=== PATIENT | female | born 1995 | race Asian ===

== ENCOUNTER 2017-05-30 19:21 | Emergency (ER) | payer OTHER ==
[~2017-05-30] VITALS: Ht 149.9 cm; Wt 44.9 kg
[2017-05-30 19:30] VITALS: Ht 149.9 cm; Wt 44.9 kg
[2017-05-30] MEDS ORDERED: ACETAMINOPHEN 325 MG TAB PO STA (19:58)
[2017-05-30] MEDS ORDERED: SODIUM CHLORIDE 0.9% 1000ML 1,000 ML IV ONE (20:00)
--- NOTE | 2017-05-30 20:09 | EMERGENCY ROOM VISIT NOTE ---
History First contact with patient: 19:38 Chief Complaint: FEVER Stated Complaint: BRYANT,FEVER,SORE THROAT,JAW AND LOWER BACK ACHE History of Present Illness The patient is a 21 year old female who presents to the Emergency Room with complaints of a fever, sore throat and body aches that started last night. The patient also complains of a headache. She denies any productive cough or shortness of breath. The patient did not take any [id number] medications for her symptoms. She does not like to take medications. She has been trying to hydrate. The patient called the [facility] nurse who told her to come to the emergency department for evaluation. Review of Systems 10 system review performed and negative unless noted in HPI or below Past Medical/Surgical History Ulcerative colitis Family History No reported medical history in the family Social History Smoking Status: Never Smoker Alcohol Use: none Occupation Status: [employer] student Current/Historical Medications No Active Prescriptions or Reported Meds Physical Exam Vital Signs Date Time Temp Pulse Resp B/P (MAP) Pulse Ox O2 Delivery O2 Flow Rate FiO2 05/30/17 21:24 37.0 104 17 107/74 97 Room Air 05/30/17 21:01 94/69 05/30/17 21:00 108 05/30/17 20:31 112/76 05/30/17 20:26 106 17 108/79 97 Room Air 05/30/17 19:30 38.4 122 20 120/83 96 Room Air Physical Exam GENERAL: 21 year old female, in no acute distress, nondiaphoretic, well- developed well-nourished. SKIN: The skin was without rashes, erythema, edema, or bruising. HEAD: Normocephalic atraumatic. EARS: External auditory canals clear, tympanic membranes with slight erythema. No effusion bilaterally. EYES: Pupils equal round and reactive to light and accommodation. Conjunctivae without injection, sclerae without icterus. Extraocular movements intact. NOSE: No sinus tenderness. MOUTH: Mucous membranes moist. Tonsils are erythematous with white exudate bilaterally. +1 edema noted. No swelling of the soft palate. No hot potato voice. No trismus. NECK: Supple without nuchal rigidity. Lymphadenopathy noted in the anterior cervical chain. Cervical spine is nontender. No JVD. The patient has full extension and flexion of her neck. HEART: Tachycardic, regular rhythm without murmurs gallops or rubs. LUNGS: Clear to auscultation bilaterally without wheezes, rales or rhonchi. No accessory muscle use. ABDOMEN: Positive bowel sounds x 4.Soft, nontender, without organomegaly. No guarding or rebound tenderness. MUSCULOSKELETAL: No muscle atrophy, erythema, or edema noted. Strength 5/5 throughout. NEURO: Patient was alert and oriented to person place and time. Normal sensation to touch. No focal neurological deficits. Medical Decision & Procedures Laboratory Results 05/30/17 20:15 Red Blood Count 5.04, Mean Corpuscular Volume 86.7, Mean Corpuscular Hemoglobin 28.6, Mean Corpuscular Hemoglobin Concent 33.0, Mean Platelet Volume 10.3, Neutrophils (%) (Auto) 69.2, Lymphocytes (%) (Auto) 17.6, Monocytes (%) (Auto) 12.0, Eosinophils (%) (Auto) 0.8, Basophils (%) (Auto) 0.4, Neutrophils # (Auto ) 3.35, Lymphocytes # (Auto) 0.85, Monocytes # (Auto) 0.58, Eosinophils # (Auto ) 0.04, Basophils # (Auto) 0.02 05/30/17 20:15 Test 05/30/17 20:15 05/30/17 21:20 White Blood Count 4.84 K/uL (4.8-10.8) Red Blood Count 5.04 M/uL (4.2-5.4) Hemoglobin 14.4 g/dL (12.0-16.0) Hematocrit 43.7 % (37-47) Mean Corpuscular Volume 86.7 fL (80-100) Mean Corpuscular Hemoglobin 28.6 pg (25-34) Mean Corpuscular Hemoglobin Concent 33.0 g/dl (32-36) Platelet Count 130 K/uL (130-400) Mean Platelet Volume 10.3 fL (7.4-10.4) Neutrophils (%) (Auto) 69.2 % Lymphocytes (%) (Auto) 17.6 % Monocytes (%) (Auto) 12.0 % Eosinophils (%) (Auto) 0.8 % Basophils (%) (Auto) 0.4 % Neutrophils # (Auto) 3.35 K/uL (1.4-6.5) Lymphocytes # (Auto) 0.85 K/uL (1.2-3.4) Monocytes # (Auto) 0.58 K/uL (0.11-0.59) Eosinophils # (Auto) 0.04 K/uL (0-0.5) Basophils # (Auto) 0.02 K/uL (0-0.2) RDW Standard Deviation 41.3 fL (36.4-46.3) RDW Coefficient of Variation 13.1 % (11.5-14.5) Immature Granulocyte % (Auto) 0.0 % Immature Granulocyte # (Auto) 0.00 K/uL (0.00-0.02) Anion Gap 7.0 mmol/L (3-11) Est Creatinine Clear Calc Drug Dose 72.9 ml/min Estimated GFR () 116.0 Estimated GFR (Non- 100.1 BUN/Creatinine Ratio 6.0 (10-20) Calcium Level 9.5 mg/dl (8.5-10.1) Total Bilirubin 0.4 mg/dl (0.2-1) Aspartate Amino Transf (AST/SGOT) 13 U/L (15-37) Alanine Aminotransferase (ALT/SGPT) 12 U/L (12-78) Alkaline Phosphatase 67 U/L (45-117) Total Protein 8.1 gm/dl (6.4-8.2) Albumin 4.3 gm/dl (3.4-5.0) Globulin 3.8 gm/dl (2.5-4.0) Albumin/Globulin Ratio 1.1 (0.9-2) Monoscreen NEG (NEG) Urine Color YELLOW Urine Appearance CLEAR (CLEAR) Urine pH 5.5 (4.5-7.5) Urine Specific [place] 1.018 (1.000-1.030) Urine Protein NEG (NEG) Urine Glucose (UA) NEG (NEG) Urine Ketones 3+ (NEG) Urine Occult Blood TRACE (NEG) Urine Nitrite NEG (NEG) Urine Bilirubin NEG (NEG) Urine Urobilinogen NEG (NEG) Urine Leukocyte Esterase TRACE (NEG) Urine WBC (Auto) 1-5 /hpf (0-5) Urine RBC (Auto) 0-4 /hpf (0-4) Urine Hyaline Casts (Auto) 1-5 /lpf (0-5) Urine Epithelial Cells (Auto) >30 /lpf (0-5) Urine Bacteria (Auto) NEG (NEG) Urine Test NEG (NEG) Medications Administered Medications (Trade) Dose Ordered Sig/Lorne Route Start Time Stop Time Status Last Admin Dose Admin Sodium Chloride 1,000 ml @ 999 mls/hr Q1H1M ONCE IV 05/30/17 20:00 05/30/17 21:00 DC 05/30/17 20:22 999 MLS/HR Acetaminophen (Tylenol Tab) 650 mg NOW STAT PO 05/30/17 19:58 05/30/17 19:59 DC 05/30/17 20:22 650 MG ED Course Patient was seen and examined Vital signs including blood pressure were reviewed medications list was verified with patient Labs were obtained, and a saline lock was established The patient was given Tylenol 650 mg. She was hydrated with 1 L of normal saline. Upon reevaluation, the patient was feeling much better. She was comfortable being discharged home. We thoroughly reviewed her workup. She voiced understanding. I reviewed discharge instructions the patient. They voiced understanding and had no further questions. Medical Decision Differential diagnosis: Bacterial versus viral tonsillitis, mononucleosis, sinusitis, meningitis This patient is a 21-year-old female that presented to the emergency department with body aches, fever and sore throat and headache. She does not have any nuchal rigidity on exam. I do not suspect meningitis. Her tonsils are erythematous with exudate. She likely has a tonsillitis. Her labs are unremarkable. She was hydrated and given Tylenol in the emergency department with good symptomatically relief. The patient was given a prescription for amoxicillin. She is fairly hesitant on taking medications. I advised her to see how she does over the next 24 hours. If she continues to worsen, she was instructed to begin the antibiotic. If she began to get better, she could disregard it. She is comfortable with this plan. I advised her to also follow-up with [facility]. She was discharged in good condition. Blood Pressure Screening Patient's blood pressure: Normal blood pressure Impression Primary Impression: Tonsillitis Departure Information Dispostion Home / Self-Care Condition GOOD Prescriptions Amoxicillin (AMOXIL) 500 Mg Cap 1 CAP PO TID for 10 Days, #30 CAP Prov: Nell Nagy PA-C 05/30/17 Referrals No Doctor, Assigned (PCP) Patient Instructions ED Tonsillitis, My [facility] Additional Instructions You were treated in the emergency department for tonsillitis. Continue to take Tylenol 500 mg 1 tab every 4-6 hours as needed for pain and fever Drink plenty of fluids over the next several days If your condition worsens (persistent fever, worsening sore throat, difficulty swallowing), please begin and finish the entire course of antibiotics Please follow-up with [facility] in the next 2-3 days for a recheck Return to the emergency department if you have any of the following symptoms: -Fever of 103F or greater -Inability to swallow -Difficulty opening your mouth -Chest pain -Shortness of breath -Worsening pain
[2017-05-30 20:30] LABS: BASO % 0.4 %; BASO ABS # 0.02 K/uL (0-0.2); COMPLETE YES; EOS % 0.8 %; HEMATOCRIT 43.7 % (37-47); LYMPH % 17.6 %; LYMPH ABS # 0.85 K/uL (1.2-3.4); MEAN CELL VOLUME 86.7 fL (80-100); MEAN CORPUSCULAR HEMOGLOBIN 28.6 pg (25-34); MEAN PLATELET VOLUME 10.3 fL (7.4-10.4); NEUT % 69.2 %; PLATELET COUNT 130 K/uL (130-400); RED BLOOD COUNT 5.04 M/uL (4.2-5.4); WHITE BLOOD COUNT 4.84 K/uL (4.8-10.8)
[2017-05-30 20:44] LABS: CALCIUM 9.5 mg/dl (8.5-10.1); CREATININE 0.84 mg/dl (0.60-1.20); POTASSIUM 3.8 mmol/L (3.5-5.1)
[2017-05-30 20:47] LABS: ALB/GLOB RATIO 1.1 (0.9-2)
[2017-05-30 21:24] VITALS: TEMP 37
[2017-05-30 21:39] LABS: URINE APPEARANCE CLEAR (CLEAR); URINE BILIRUBIN NEG (NEG); URINE COLOR YELLOW; URINE EPITHELIAL CELL AUTO >30 /lpf (0-5); URINE NITRITE NEG (NEG); URINE PH 5.5 (4.5-7.5); URINE SPECIFIC GRAVITY 1.018 (1.000-1.030); UROBILINOGEN NEG (NEG)
[2017-05-30 21:40] LABS: MANUAL MICROSCOPIC REQUIRED? NO; REVIEW REQ? NO
[2017-05-30] MEDS ORDERED: AMOX500C3 PO (21:59)
[2017-05-30 22:20] VITALS: BP 103/91; PULSE 90; O2SAT 97
== END 2017-05-30 22:20 | disposition home or self-care (01) ==
LOC: C.EDB 19:24 → C.EDC 22:20
DX: J03.90 Acute tonsillitis, unspecified (principal)